=== PATIENT | female | born 1950 | race Caucasian/White ===

== ENCOUNTER 2024-09-24 06:08 | Day surgery (SDC) | payer MEDICARE, OTHER, SELFPAY ==
[2024-09-24 07:30] VITALS: BMI 24.2
[2024-09-24 07:31] VITALS: BMI 24.2
[2024-09-24 07:32] VITALS: BP 141/77
[2024-09-24 08:55] VITALS: BP 124/64
[2024-09-24 09:00] VITALS: BP 134/81
[2024-09-24 09:15] VITALS: BP 133/66
[2024-09-24 09:30] VITALS: BP 142/70
== END 2024-09-24 10:00 | disposition home or self-care (01) ==
LOC: GI 06:08
PROVIDERS: ATTENDING PHYSICIAN Internal Medicine Gastroenterology
DX: R10.13 Epigastric pain (principal); K57.10 Diverticulosis of small intestine without perforation or abscess without bleeding; R93.3 Abnormal findings on diagnostic imaging of other parts of digestive tract; K86.89 Other specified diseases of pancreas; K83.8 Other specified diseases of biliary tract; K86.9 Disease of pancreas, unspecified
CPT/HCPCS: 43237